=== PATIENT | female | born 1985 | race Caucasian/White ===

== ENCOUNTER 2017-07-22 13:16 | Outpatient (CLI) | payer MEDICAID ==
[~2017-07-22] VITALS: Ht 162.6 cm; Wt 65.9 kg
[~2017-07-22 13:16] MED LIST: DOCU-131 PO; IBUP-1222 PO; NORE0.354 PO; OXYC-302 PO
[2017-07-22 14:00] VITALS: BP 96/59
[2017-07-22] MEDS ORDERED: PREN1TAB60 PO (14:12)
[2017-07-22 14:34] LABS: DAU SCREEN DISCLAIMER
== END 2017-07-22 15:10 | disposition home or self-care (01) ==
LOC: LDOP 13:16
PROVIDERS: ATTEND Obstetrics & Gynecology
DX: O26.891 Other specified pregnancy related conditions, first trimester (principal); R10.9 Unspecified abdominal pain; Z3A.13 13 weeks gestation of pregnancy
CPT/HCPCS: 59025; 76815; 80307; 81001; 87077; 87086; 87186; 99211; G0463

== ENCOUNTER 2017-07-30 11:03 | Emergency (ER) | payer MEDICAID ==
[~2017-07-30] VITALS: Ht 167.6 cm; Wt 72.9 kg
[~2017-07-30 11:03] MED LIST changes: +PREN1TAB60 PO
[2017-07-30 11:51] LABS: HEMATOCRIT 34.1 % (34.6-47.8); HEMOGLOBIN 11.5 g/dL (11.7-16.4); WHITE BLOOD COUNT 7.1 x10^3/uL (3.4-10)
[2017-07-30] MEDS ORDERED: ONDANSETRON 2MG/ML, 2ML ONE (11:52)
[2017-07-30] MEDS ORDERED: MORPHINE SULFATE 4 MG/ML, 1ML ONE ×2 (11:52→14:09)
[2017-07-30] MEDS: MORPHINE SULFATE 4 MG/ML, 1ML IVPush PRN ×2 (11:55→14:08)
[2017-07-30] MEDS ORDERED: ONDANSETRON 2MG/ML, 2ML IVPush ONE (12:00)
[2017-07-30] MEDS ORDERED: SODIUM CHLORIDE FLUSH 10ML SYR IVF ONE (12:00)
[2017-07-30] MEDS ORDERED: SODIUM CHLORIDE 0.9% 1,000ML IVBOLUS ONE (12:00)
[2017-07-30 12:03] LABS: ASPARTATE AMINO TRANSFERASE 12 U/L (15-37); BLOOD UREA NITROGEN 8 mg/dL (7-18)
[2017-07-30 13:40] VITALS: BP 91/60
[2017-07-30 13:51] LABS: PATH.CAST-FLAG NOT PRESENT; SPERM-FLAG NOT PRESENT; SRC-FLAG NOT PRESENT; XTAL-FLAG NOT PRESENT; YLC-FLAG NOT PRESENT
[2017-07-30] MEDS ORDERED: CEFTRIAXONE PMX 1GM/50ML 50 ML ONE (13:59)
[2017-07-30] MEDS ORDERED: CEFTRIAXONE PMX 1GM/50ML 50 ML IV ONE (14:00)
== END 2017-07-30 15:06 | disposition home or self-care (01) ==
LOC: ED 12:01
DX: J45.909 Unspecified asthma, uncomplicated (principal); Z88.0 Allergy status to penicillin
CPT/HCPCS: 36415; 76805; 80053; 81001; 84702; 85025; 87077; 87086; 87186; 96365; 96366; 96375; 96376; 99285; J0696; J2405; J7030

== ENCOUNTER 2017-10-02 18:02 | Emergency (ER) | payer MEDICAID ==
[~2017-10-02] VITALS: Ht 160 cm; Wt 59.8 kg
[2017-10-02 18:04] VITALS: BP 105/70
[2017-10-02] MEDS ORDERED: ACETAMINOPHEN 325 MG TABLET ONE (18:55)
[2017-10-02] MEDS ORDERED: ACETAMINOPHEN 325 MG TABLET PO ONE (19:00)
== END 2017-10-02 18:59 | disposition home or self-care (01) ==
LOC: ED 18:05
DX: K04.7 Periapical abscess without sinus (principal); K02.9 Dental caries, unspecified; J45.909 Unspecified asthma, uncomplicated
CPT/HCPCS: 99283

== ENCOUNTER 2017-12-14 04:26 | Outpatient (CLI) | payer MEDICAID ==
[2017-12-14 05:45] LABS: AMPHETAMINE SCREEN, URINE Negative (Negative); BARBITURATE SCREEN, URINE Negative (Negative); BENZODIAZEPINE SCREEN, URINE Negative (Negative); CANNABINOID SCREEN, URINE Negative (Negative); COCAINE SCREEN, URINE Negative (Negative); METHADONE SCREEN, URINE Negative (Negative); OPIATE SCREEN, URINE Negative (Negative)
[2017-12-14 05:47] LABS: MICROSCOPIC NOT IND
== END 2017-12-14 06:00 | disposition home or self-care (01) ==
LOC: LDOP 04:26
PROVIDERS: ATTEND Obstetrics & Gynecology
DX: O26.893 Other specified pregnancy related conditions, third trimester (principal); M54.5 Low back pain; R60.9 Edema, unspecified; Z3A.33 33 weeks gestation of pregnancy
CPT/HCPCS: 59025; 80307; 81003; 87086; 99211; G0463

== ENCOUNTER 2018-01-02 03:27 | Observation (INO) | payer MEDICAID ==
[~2018-01-02] VITALS: Ht 162.6 cm; Wt 64.0 kg
[2018-01-02 04:17] LABS: MICROSCOPIC AUTO
[2018-01-02 04:27] LABS: AMPHETAMINE SCREEN, URINE Negative (Negative); BARBITURATE SCREEN, URINE Negative (Negative); BENZODIAZEPINE SCREEN, URINE Negative (Negative); CANNABINOID SCREEN, URINE Negative (Negative); COCAINE SCREEN, URINE Negative (Negative); METHADONE SCREEN, URINE Negative (Negative); OPIATE SCREEN, URINE Negative (Negative)
[2018-01-02] MEDS ORDERED: D5%-LACTATED RINGERS 1,000 ML IV ONE (04:30)
[2018-01-02 05:23] LABS: MEAN CORPUSCULAR HEMOGLOBIN 30.3 pg (27.0-34.8); MEAN CORPUSCULAR HGB CONC 32.9 g/dL (32.4-35.8); MEAN CORPUSCULAR VOLUME 92.3 fL (80-100); MEAN PLATELET VOLUME 8.4 fL (7.4-10.4); PLATELET COUNT 177 x10^3/uL (130-400); RED BLOOD COUNT 3.12 x10^6/uL (3.82-5.3); RED CELL DISTRIBUTION WIDTH 14.7 % (9.6-15.2)
[2018-01-02] MEDS ORDERED: LACTATED RINGERS 1,000 ML IV SCH (06:30)
== END 2018-01-02 09:30 | disposition home or self-care (01) ==
LOC: LDOP 03:27 → LDIP 05:30
PROVIDERS: ADMIT Obstetrics & Gynecology; ATTEND Obstetrics & Gynecology
DX: O62.9 Abnormality of forces of labor, unspecified (principal); O26.893 Other specified pregnancy related conditions, third trimester; R10.9 Unspecified abdominal pain; Z3A.00 Weeks of gestation of pregnancy not specified
CPT/HCPCS: 36415; 59025; 80307; 81001; 85027; 86592; 86762; 86850; 86900; 87086; 87340; 87806; 96360; 96361; G0378; J7120; 99211; G0463; G0475; J7121

== ENCOUNTER 2018-01-13 10:09 | Outpatient (CLI) | payer MEDICAID ==
[2018-01-13 12:05] VITALS: BP 123/85
== END 2018-01-13 12:08 | disposition home or self-care (01) ==
LOC: LDOP 10:09
PROVIDERS: ATTEND Obstetrics & Gynecology
DX: O26.893 Other specified pregnancy related conditions, third trimester (principal); R10.9 Unspecified abdominal pain; Z3A.37 37 weeks gestation of pregnancy
CPT/HCPCS: 59025; 99211; G0463

== ENCOUNTER 2018-01-20 09:41 | Inpatient (IN) | payer MEDICAID ==
[~2018-01-20] VITALS: Ht 162.6 cm; Wt 63.6 kg
[2018-01-20] MEDS ORDERED: OXYTOCIN 30U/ 0.9% NaCL 500ML 500 ML IV SCH (10:20)
[2018-01-20] MEDS ORDERED: LACTATED RINGERS 1,000 ML IV SCH ×2 (10:20)
[2018-01-20] MEDS ORDERED: LACTATED RINGERS 1,000 ML IVBOLUS ONE (10:30)
[2018-01-20] MEDS ORDERED: METOCLOPRAMIDE 5 MG/ML, 2ML IV ONE (10:30)
[2018-01-20] MEDS ORDERED: SODIUM CITRATE/CITRIC ACID 30 ML UDC PO ONE (10:30)
[2018-01-20] MEDS ORDERED: PLEASE ENTER HEIGHT AND WEIGHT MC SCH (10:30)
[2018-01-20 11:04] LABS: AMPHETAMINE SCREEN, URINE Negative (Negative); BARBITURATE SCREEN, URINE Negative (Negative); BENZODIAZEPINE SCREEN, URINE Negative (Negative); CANNABINOID SCREEN, URINE Negative (Negative); COCAINE SCREEN, URINE Negative (Negative); METHADONE SCREEN, URINE Negative (Negative); OPIATE SCREEN, URINE Negative (Negative)
[2018-01-20 11:05] LABS: BASOPHILS # (AUTO) 0.04 x10^3/uL (0-0.1); BASOPHILS % (AUTO) 1 % (0-1); EOSINOPHILS # (AUTO) 0.04 x10^3/uL (0-0.4); EOSINOPHILS % (AUTO) 1 % (1-7); LYMPHOCYTES # (AUTO) 2.55 x10^3/uL (1-3.4); LYMPHOCYTES % (AUTO) 38 % (22-44); MD NO; MEAN CORPUSCULAR HEMOGLOBIN 30.4 pg (27.0-34.8); MEAN CORPUSCULAR VOLUME 92.1 fL (80-100); MEAN PLATELET VOLUME 8.3 fL (7.4-10.4); MONOCYTES # (AUTO) 0.81 x10^3/uL (0.2-0.8); MONOCYTES % (AUTO) 12 % (2-9); NEUTROPHILS # (AUTO) 3.25 x10^3/uL (1.8-6.8); NEUTROPHILS % (AUTO) 49 % (42-75); PLATELET COUNT 270 x10^3/uL (130-400); RED BLOOD COUNT 3.59 x10^6/uL (3.82-5.3); RED CELL DISTRIBUTION WIDTH 15.3 % (9.6-15.2)
[2018-01-20] MEDS ORDERED: METOCLOPRAMIDE 5 MG/ML, 2ML ONE (13:01)
[2018-01-20] MEDS ORDERED: OXYTOCIN 30U/ 0.9% NaCL 500ML 500 ML ONE (13:01)
[2018-01-20] MEDS ORDERED: NEWBORN KIT ONE (13:01)
[2018-01-20] MEDS ORDERED: SODIUM CITRATE/CITRIC ACID 30 ML UDC ONE (13:01)
[2018-01-20] MEDS ORDERED: CLINDAMYCIN PMX 900MG/50ML 50 ML ONE (13:58)
[2018-01-20] MEDS ORDERED: FENTANYL PF 100 MCG/2ML ONE ×2 (14:00→17:45)
[2018-01-20] MEDS ORDERED: OXYTOCIN 10 UNITS/ML, 1ML ONE (14:31)
[2018-01-20] MEDS ORDERED: EPHEDRINE 50 MG/ML, 1ML ONE (15:19)
[2018-01-20] MEDS ORDERED: EPHEDRINE 50 MG/ML, 1ML IVPush PRN (15:30)
[2018-01-20] MEDS ORDERED: ALBUTEROL/IPRATROPIUM 2.5MG/0.5MG, 3 ML NPPB PRN (15:30)
[2018-01-20] MEDS ORDERED: OXYcodone 5 MG/5 ML ORAL.SOL UDC PO PRN (15:30)
[2018-01-20] MEDS ORDERED: MIDAZOLAM 1 MG/ML, 2ML IV PRN (15:30)
[2018-01-20] MEDS ORDERED: ONDANSETRON 2MG/ML, 2ML IVPush PRN (15:30)
[2018-01-20] MEDS ORDERED: PROMETHAZINE 25 MG/ML, 1ML IV PRN (15:30)
[2018-01-20] MEDS ORDERED: MEPERIDINE/PF 25MG/0.5ML IVPush PRN (15:30)
[2018-01-20] MEDS ORDERED: HYDROmorphone 1 MG/ML, 1ML IV PRN (15:30)
[2018-01-20] MEDS ORDERED: FENTANYL PF 100 MCG/2ML IV PRN (15:30)
[2018-01-20] MEDS ORDERED: OXYcodone 5 MG/5 ML ORAL.SOL UDC ONE (15:54)
[2018-01-20 17:03] LABS: MICROSCOPIC INDICATED
[2018-01-20 17:31] LABS: ANION GAP 7 mmol/L (5-15); CALCIUM 7.8 mg/dL (8.5-10.1); CHLORIDE 108 mmol/L (98-107)
[2018-01-20 17:34] LABS: ALANINE AMINOTRANSFERASE 13 U/L (12-78); ALKALINE PHOSPHATASE 102 U/L (45-117); BILIRUBIN,TOTAL 0.5 mg/dL (0.2-1.0); CREATININE 0.62 mg/dL (0.55-1.02); TOTAL PROTEIN 5.3 g/dL (6.4-8.2)
[2018-01-20 17:57] LABS: TOTAL PROTEIN,URINE RANDOM 223 mg/dL (0-12)
[2018-01-20 17:58] LABS: CREATININE,URINE RANDOM < 13.00 mg/dL; PROTEIN/CREATININE RATIO,URINE 17154 (0-200)
[2018-01-20 18:00] VITALS: BP 140/102
[2018-01-20] MEDS: LACTATED RINGERS 1,000 ML IV SCH (18:00)
[2018-01-20] MEDS ORDERED: IBUPROFEN 600 MG TABLET PO PRN (18:00)
[2018-01-20] MEDS ORDERED: CALCIUM CARBONATE 500 MG TAB.CHEW PO PRN (18:00)
[2018-01-20] MEDS ORDERED: SIMETHICONE 80 MG CHEW TAB PO PRN (18:00)
[2018-01-20] MEDS ORDERED: METOCLOPRAMIDE 5 MG/ML, 2ML IV PRN (18:00)
[2018-01-20] MEDS ORDERED: MEASLES,MUMPS&RUBELLA VACC/PF 0.5 ML SQ-VACC PRN (18:00)
[2018-01-20] MEDS ORDERED: ACETAMINOPHEN 325 MG TABLET PO PRN ×2 (18:00)
[2018-01-20] MEDS ORDERED: MISOPROSTOL 200 MCG TABLET PR PRN ×2 (18:00)
[2018-01-20] MEDS ORDERED: MEPERIDINE/PF 25MG/0.5ML IM PRN (18:00)
[2018-01-20] MEDS: OXYTOCIN 30U/ 0.9% NaCL 500ML 500 ML IV SCH (18:00)
[2018-01-20] MEDS ORDERED: ONDANSETRON 2MG/ML, 2ML IV PRN (18:00)
[2018-01-20] MEDS ORDERED: OXYcodone/APAP 5/325MG TABLET PO PRN (18:00)
[2018-01-20] MEDS ORDERED: CARBOPROST TROMETHAMINE 250 MCG/ML, 1ML IM PRN (18:00)
[2018-01-20] MEDS ORDERED: MEPERIDINE/PF 50 MG/ML ONE (18:21)
[2018-01-20] MEDS: morphine SULFATE 10 MG/ML, 1ML IVPush PRN (19:32)
[2018-01-20 20:00] VITALS: BP 129/92
[2018-01-20] MEDS: OXYcodone/APAP 5/325MG TABLET PO PRN (20:23)
[2018-01-20 23:06] LABS: BASOPHILS # (AUTO) 0.03 x10^3/uL (0-0.1); BASOPHILS % (AUTO) 0 % (0-1); EOSINOPHILS # (AUTO) 0.01 x10^3/uL (0-0.4); EOSINOPHILS % (AUTO) 0 % (1-7); LYMPHOCYTES # (AUTO) 2.24 x10^3/uL (1-3.4); LYMPHOCYTES % (AUTO) 23 % (22-44); MD NO; MEAN CORPUSCULAR HEMOGLOBIN 29.8 pg (27.0-34.8); MEAN CORPUSCULAR HGB CONC 32.4 g/dL (32.4-35.8); MEAN CORPUSCULAR VOLUME 91.8 fL (80-100); MEAN PLATELET VOLUME 8.1 fL (7.4-10.4); MONOCYTES # (AUTO) 0.48 x10^3/uL (0.2-0.8); MONOCYTES % (AUTO) 5 % (2-9); NEUTROPHILS # (AUTO) 7.12 x10^3/uL (1.8-6.8); NEUTROPHILS % (AUTO) 72 % (42-75); PLATELET COUNT 236 x10^3/uL (130-400); RED BLOOD COUNT 3.56 x10^6/uL (3.82-5.3); RED CELL DISTRIBUTION WIDTH 15.9 % (9.6-15.2)
[2018-01-21 00:10] VITALS: BP 139/95
[2018-01-21] MEDS: OXYcodone/APAP 5/325MG TABLET PO PRN ×5 (00:32→20:20)
[2018-01-21] MEDS: morphine SULFATE 10 MG/ML, 1ML IVPush PRN (03:10)
[2018-01-21 04:00] VITALS: BP 129/85
[2018-01-21] MEDS: OXYTOCIN 30U/ 0.9% NaCL 500ML 500 ML IV SCH ×2 (04:00→14:00)
[2018-01-21] MEDS: LACTATED RINGERS 1,000 ML IV SCH ×2 (04:00→14:00)
[2018-01-21 06:55] VITALS: BP 127/93
[2018-01-21] MEDS: DOCUSATE 100 MG CAPSULE PO PRN ×2 (07:51→20:20)
[2018-01-21] MEDS: PRENATAL VIT/IRON/FA 1 EACH TABLET PO SCH (07:51)
[2018-01-21] MEDS: NICOTINE 21 MG/24 HR PATCH.TD24 TD SCH (17:56)
[2018-01-21 19:15] VITALS: BP 150/98
[2018-01-21 20:15] VITALS: BP 135/94
[2018-01-21] MEDS ORDERED: DIPH,PERTUSS(ACELL),TET VAC/PF NC IM-VACC ONE (21:00)
[2018-01-22] VITALS: BP 152/98
[2018-01-22] MEDS: OXYcodone/APAP 5/325MG TABLET PO PRN ×4 (03:07→21:25)
[2018-01-22 04:00] VITALS: BP 141/96
[2018-01-22 07:30] VITALS: BP 131/98
[2018-01-22] MEDS: DOCUSATE 100 MG CAPSULE PO PRN ×2 (09:27→21:25)
[2018-01-22] MEDS: PRENATAL VIT/IRON/FA 1 EACH TABLET PO SCH (09:27)
[2018-01-22 14:32] VITALS: BP 134/102
[2018-01-22 15:11] LABS: BASOPHILS % (AUTO) 0 % (0-1); EOSINOPHILS # (AUTO) 0.03 x10^3/uL (0-0.4); EOSINOPHILS % (AUTO) 0 % (1-7); LYMPHOCYTES # (AUTO) 1.59 x10^3/uL (1-3.4); LYMPHOCYTES % (AUTO) 17 % (22-44); MD NO; MEAN CORPUSCULAR HEMOGLOBIN 29.4 pg (27.0-34.8); MEAN CORPUSCULAR VOLUME 91.9 fL (80-100); MEAN PLATELET VOLUME 7.9 fL (7.4-10.4); MONOCYTES # (AUTO) 0.59 x10^3/uL (0.2-0.8); MONOCYTES % (AUTO) 6 % (2-9); NEUTROPHILS # (AUTO) 7.37 x10^3/uL (1.8-6.8); NEUTROPHILS % (AUTO) 77 % (42-75); PLATELET COUNT 219 x10^3/uL (130-400); RED BLOOD COUNT 3.83 x10^6/uL (3.82-5.3); RED CELL DISTRIBUTION WIDTH 15.7 % (9.6-15.2)
[2018-01-22 15:20] LABS: ALANINE AMINOTRANSFERASE 12 U/L (12-78); ALBUMIN 2.1 g/dL (3.4-5.0); ANION GAP 7 mmol/L (5-15); CALCIUM 8.4 mg/dL (8.5-10.1); CHLORIDE 105 mmol/L (98-107)
[2018-01-22 15:21] LABS: BILIRUBIN, DIRECT < 0.1 mg/dL (0.1-0.2)
[2018-01-22 15:23] LABS: ALKALINE PHOSPHATASE 93 U/L (45-117); BILIRUBIN,TOTAL 0.3 mg/dL (0.2-1.0); CREATININE 0.52 mg/dL (0.55-1.02); TOTAL PROTEIN 5.8 g/dL (6.4-8.2)
[2018-01-22] MEDS: NICOTINE 21 MG/24 HR PATCH.TD24 TD SCH (17:00)
[2018-01-22] MEDS: OXYcodone IR 5MG TABLET PO PRN (17:48)
[2018-01-22 20:00] VITALS: BP 138/101
[2018-01-22] MEDS ORDERED: NICOTINE 21 MG/24 HR PATCH.TD24 TD SCH (21:00)
[2018-01-23 01:50] VITALS: BP 135/93
[2018-01-23] MEDS: OXYcodone IR 5MG TABLET PO PRN ×3 (01:56→20:41)
[2018-01-23 05:45] VITALS: BP 134/97
[2018-01-23] MEDS: OXYcodone/APAP 5/325MG TABLET PO PRN ×2 (05:51→14:44)
[2018-01-23 08:07] VITALS: BP 128/94
[2018-01-23] MEDS: PRENATAL VIT/IRON/FA 1 EACH TABLET PO SCH (08:25)
[2018-01-23] MEDS: DOCUSATE 100 MG CAPSULE PO PRN ×2 (08:25→20:40)
[2018-01-23] MEDS ORDERED: IBUP-1222 PO (16:55)
[2018-01-23] MEDS ORDERED: OXYC-302 PO (19:25)
[2018-01-23 20:43] VITALS: BP 140/93
== END 2018-01-23 21:20 | disposition home or self-care (01) | DRG 766 ==
LOC: LDOP 09:41 → LDIP 10:22 → 2NW 17:54
PROVIDERS: ADMIT Obstetrics & Gynecology; ATTEND Obstetrics & Gynecology
PROC: 10D00Z1 Extraction of Products of Conception, Low, Open Approach (ICD-10-PCS; principal; 2018-01-20)
DX: O34.211 Maternal care for low transverse scar from previous cesarean delivery (principal); F17.200 Nicotine dependence, unspecified, uncomplicated; O99.334 Smoking (tobacco) complicating childbirth; O32.8XX0 Maternal care for other malpresentation of fetus, not applicable or unspecified; O99.284 Endocrine, nutritional and metabolic diseases complicating childbirth; O99.52 Diseases of the respiratory system complicating childbirth; J45.909 Unspecified asthma, uncomplicated; Z37.0 Single live birth; Z3A.38 38 weeks gestation of pregnancy
CPT/HCPCS: 36415; 71045; 76819; 80053; 80307; 81001; 82248; 82570; 82803; 84156; 84550; 85025; 86850; 86900; 87086; 88305; 89060; J2175; J3010; J2270; J2590; J2765; J7120; Q0114

== ENCOUNTER 2018-06-08 20:47 | Emergency (ER) | payer MEDICAID ==
[~2018-06-08] VITALS: Ht 162.6 cm; Wt 55.0 kg
[~2018-06-08 20:47] MED LIST changes: +NORE0.3535 PO; -NORE0.354 PO
[2018-06-08 21:54] LABS: BASOPHILS # (AUTO) 0.09 x10^3/uL (0-0.1); BASOPHILS % (AUTO) 1 % (0-1); EOSINOPHILS # (AUTO) 0.06 x10^3/uL (0-0.4); EOSINOPHILS % (AUTO) 1 % (1-7); LYMPHOCYTES # (AUTO) 2.85 x10^3/uL (1-3.4); LYMPHOCYTES % (AUTO) 47 % (22-44); MD NO; MEAN CORPUSCULAR HEMOGLOBIN 32.3 pg (27.0-34.8); MEAN CORPUSCULAR HGB CONC 33.8 g/dL (32.4-35.8); MEAN CORPUSCULAR VOLUME 95.8 fL (80-100); MEAN PLATELET VOLUME 7.1 fL (7.4-10.4); MONOCYTES % (AUTO) 10 % (2-9); NEUTROPHILS # (AUTO) 2.49 x10^3/uL (1.8-6.8); NEUTROPHILS % (AUTO) 41 % (42-75); PLATELET COUNT 216 x10^3/uL (130-400); RED BLOOD COUNT 3.77 x10^6/uL (3.82-5.3); RED CELL DISTRIBUTION WIDTH 13.4 % (9.6-15.2)
[2018-06-08 22:04] LABS: ALBUMIN 3.8 g/dL (3.4-5.0); ANION GAP 7 mmol/L (5-15); CALCIUM 8.7 mg/dL (8.5-10.1); CHLORIDE 113 mmol/L (98-107); CREATININE 0.63 mg/dL (0.55-1.02)
[2018-06-08 22:17] VITALS: BP 113/76
== END 2018-06-08 23:25 | disposition home or self-care (01) ==
LOC: ED 21:32
DX: R10.33 Periumbilical pain (principal); J45.909 Unspecified asthma, uncomplicated
CPT/HCPCS: 36415; 76705; 80048; 82040; 85025; 99285